=== PATIENT | male | born 1945 | race Caucasian/White ===

== ENCOUNTER 2016-07-31 01:54 | Emergency (ER) | payer MEDICARE, MEDICAID ==
[~2016-07-31] VITALS: Ht 157.5 cm; Wt 64.0 kg
[~2016-07-31 01:54] MED LIST: IBUP-1636 PO; RANI150C12 PO; TERA5CAP4 PO; TRAM50TA3 PO
[2016-07-31] MEDS ORDERED: MORPHINE SULFATE 4 MG/ML CPJ (NOT FOR IM USE) IV STA (02:37)
[2016-07-31] MEDS ORDERED: ONDANSETRON HCL 4MG/2ML VIAL IV STA (02:37)
[2016-07-31] MEDS ORDERED: FAMOTIDINE 20MG/2ML VIAL IV STA (02:37)
[2016-07-31] MEDS ORDERED: SODIUM CHLORIDE 0.9% 1,000 ML IV ONE (02:37)
[2016-07-31 02:53] VITALS: BP 138/76
[2016-07-31 03:03] LABS: BASOPHILS % 0.8 % (0.0-2.0); EOSINOPHILS % 4.9 % (0.0-5.0); HEMATOCRIT. 32.8 % (42.0-52.0); HEMOGLOBIN. 10.4 g/dL (14.0-18.0); LYMPHOCYTES % 17.2 % (20.0-50.0); MEAN CORPUSCULAR HEMOGLOBIN 25.7 pg (28.0-32.0); MEAN CORPUSCULAR HGB CONC 31.7 g/dL (31.0-37.0); MEAN CORPUSCULAR VOLUME 80.9 fL (80.0-94.0); MEAN PLATELET VOLUME 8.2 fl (7.4-10.4); MONOCYTES % 9.4 % (2.0-8.0); NEUTROPHILS % 67.7 % (40.0-76.0); PLATELET 307 x1000/uL (130-400); RED BLOOD CELL COUNT 4.05 mill/uL (4.7-6.1); RED CELL DISTRIBUTION WIDTH 14.6 % (11.6-14.6)
[2016-07-31 03:14] LABS: ALANINE AMINOTRANSFERASE 31 IU/L (13-61); ALBUMIN 3.2 g/dL (3.4-5.0); ANION GAP 14; CALCIUM 8.5 mg/dL (8.5-10.1); CARBON DIOXIDE 24 mEq/L (21-32); CHLORIDE 104 mEq/L (98-107); INDEX HEMOLYSI 1 (1-3); INDEX ICTERIC 1 (1-4); INDEX LIPEMIC 1 (1-3); LIPASE 247 IU/L (73-393); TROPONIN I < 0.02 ng/mL (0.00-0.04); UREA NITROGEN BLOOD 15 mg/dL (7-21); eGFR > 60 mL/min (>60)
== END 2016-07-31 05:57 | disposition home or self-care (01) ==
LOC: ER 02:03
DX: R10.13 Epigastric pain (principal); R11.0 Nausea; Z88.6 Allergy status to analgesic agent; Z88.5 Allergy status to narcotic agent; Z79.1 Long term (current) use of non-steroidal anti-inflammatories (NSAID); Z79.899 Other long term (current) drug therapy
CPT/HCPCS: 36415; 71010; 80053; 83605; 83690; 84484; 85025; 93005; 96361; 96374; 96375; 99285; J2270; J2405; J3490; J7030

== ENCOUNTER 2016-08-29 00:48 | Emergency (ER) | payer MEDICARE, MEDICAID ==
[~2016-08-29] VITALS: Ht 157.5 cm; Wt 72.0 kg
[2016-08-29] MEDS ORDERED: IPRATROPIUM/ALBUTEROL 0.5-3(2.5)MG/3ML NEB HHN ONE ×2 (01:45→02:45)
[2016-08-29] MEDS ORDERED: PREDNISONE 20MG TABLET PO ONE (02:45)
[2016-08-29 04:03] VITALS: BP 135/67
== END 2016-08-29 04:15 | disposition home or self-care (01) ==
LOC: ER 00:49
DX: J45.909 Unspecified asthma, uncomplicated (principal); Z88.5 Allergy status to narcotic agent; Z88.6 Allergy status to analgesic agent; Z99.3 Dependence on wheelchair
CPT/HCPCS: 94640; 99283; J7512; J7620

== ENCOUNTER 2016-08-30 01:02 | Emergency (ER) | payer MEDICARE, MEDICAID ==
[~2016-08-30] VITALS: Ht 157.5 cm; Wt 65.0 kg
[2016-08-30] MEDS ORDERED: PREDNISONE 20MG TABLET PO STA (01:41)
[2016-08-30] MEDS ORDERED: IPRATROPIUM BROMIDE (0.02%) 0.5MG/2.5ML NEB HHN STA (01:41)
[2016-08-30] MEDS ORDERED: ALBUTEROL (0.083%) 2.5MG/3ML NEB HHN STA (01:41)
[2016-08-30 05:10] VITALS: BP 122/78
== END 2016-08-30 05:10 | disposition home or self-care (01) ==
LOC: ER 03:25
DX: J45.901 Unspecified asthma with (acute) exacerbation (principal); Z87.891 Personal history of nicotine dependence; Z88.5 Allergy status to narcotic agent; Z88.6 Allergy status to analgesic agent; Z98.890 Other specified postprocedural states
CPT/HCPCS: 71010; 94644; 99285; J7512; J7611